=== PATIENT | female | born 1965 | race Caucasian/White ===

== ENCOUNTER → 2017-04-10 | Outpatient (CLI) | payer MEDICAID ==
--- NOTE | 2017-04-10 15:16 | RADIOLOGY REPORT (SQ) ---
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 NUMBER OF VIEWS: Three views. TECHNIQUE: Internal rotation, external rotation, and Y view images acquired of the right shoulder. LIMITATIONS: None. FINDINGS: MINERALIZATION: Normal. BONES: There may have been resection of the distal most portion of the clavicle. There is no acute f racture or dislocation. JOINTS: No dislocation. VISUALIZED LUNGS AND RIBS: No pneumothorax. No rib fracture. SOFT TISSUES: No radiopaque foreign body. OTHER: No other significant finding. IMPRESSION: There appear to be surgical changes. There is no acute abnormality in the right shoulde r. Consider MR for further evaluation if clinically indicated. TECHNICAL DOCUMENTATION: JOB ID: [id number] [employer]- All Rights Reserved
--- NOTE | 2017-04-10 15:21 | RADIOLOGY REPORT (SQ) ---
EXAM DESCRIPTION: SCAPULA RIGHT COMPLETED DATE/TIME: 04/10/2017 2:02 pm REASON FOR STUDY: COMPLAINT OF SHOULDER/SCAPULAR PAIN COMPARISON: Right shoulder films same date AP chest 03/02/2016 TECHNIQUE: Right scapula Y-view and AP view LIMITATIONS: None. FINDINGS: Grossly normal bone density. There is widening of the right acromioclavicular joint, similar compared to AP chest film 03/02/2016. No glenohumeral joint malalignment. No scapula fracture. Right upper ribs unremarkable. IMPRESSION: No acute fracture. There is widening of the right acromioclavicular joint similar compared to chest film 03/02/2016. TECHNICAL DOCUMENTATION: JOB ID: [id number] [employer]- All Rights Reserved
== END ==
LOC: RAD 13:44
PROVIDERS: ATTEND Radiology Radiation Oncology
DX: C50.512 Malignant neoplasm of lower-outer quadrant of left female breast (principal); D05.12 Intraductal carcinoma in situ of left breast; M25.511 Pain in right shoulder; Z85.3 Personal history of malignant neoplasm of breast; Z95.1 Presence of aortocoronary bypass graft

== ENCOUNTER → 2019-07-19 | Outpatient (CLI) | payer MEDICAID ==
[2019-07-19 11:49] LABS: ABSOLUTE EOSINOPHILS # (AUTO) 0.1 10^3/uL (0.0-0.6); ABSOLUTE LYMPHOCYTES (AUTO) 1.4 10^3/uL (0.5-4.7); ABSOLUTE MONOCYTES (AUTO) 0.6 10^3/uL (0.1-1.4); ABSOLUTE NEUT (AUTO) 7.8 10^3/uL (1.7-8.2); BASOPHILS % (AUTO) 0.2 % (0-2); EOSINOPHILS % (AUTO) 0.6 % (0-6); HEMATOCRIT 35.5 % (36.0-47.0); HEMOGLOBIN 12.3 g/dL (12.0-15.5); LYMPHOCYTES % (AUTO) 13.9 % (13-45); MEAN CORPUSCULAR HEMOGLOBIN 30.4 pg (27.0-33.4); MEAN CORPUSCULAR HGB CONC 34.7 g/dL (32.0-36.0); MEAN CORPUSCULAR VOLUME 88 fl (80-97); MONOCYTES % (AUTO) 6.1 % (3-13); PLATELET COUNT 214 10^3/uL (150-450); RED BLOOD COUNT 4.05 10^6/uL (3.72-5.28); RED CELL DISTRIBUTION WIDTH 12.6 % (11.5-14.0); SEGMENTED NEUTROPHILS % (AUTO) 79.2 % (42-78); TOTAL CELLS COUNTED % (AUTO) 100 %; WHITE BLOOD COUNT 9.8 10^3/uL (4.0-10.5)
[2019-07-19 12:22] LABS: ALBUMIN 4.5 g/dL (3.5-5.0); ALKALINE PHOSPHATASE 58 U/L (38-126); ANION GAP 6 (5-19); ASPARTATE AMINO TRANSFERASE 56 U/L (14-36); BILIRUBIN,TOTAL 0.4 mg/dL (0.2-1.3); BLOOD UREA NITROGEN 19 mg/dL (7-20); CALCIUM 9.3 mg/dL (8.4-10.2); CARBON DIOXIDE 30 mmol/L (22-30); CHLORIDE 102 mmol/L (98-107); GLUCOSE 87 mg/dL (75-110); POTASSIUM 5.1 mmol/L (3.6-5.0); TOTAL PROTEIN 7.3 g/dL (6.3-8.2)
== END ==
LOC: LAB 11:28
PROVIDERS: ATTEND Physician Assistant
DX: Z11.2 Encounter for screening for other bacterial diseases (principal); I10 Essential (primary) hypertension
CPT/HCPCS: 36415; 80053; 85025; 87070

== ENCOUNTER → 2020-04-20 | Outpatient (CLI) | payer MEDICARE ==
--- NOTE | 2020-04-20 18:15 | RADIOLOGY REPORT (SQ) ---
EXAM DESCRIPTION: MRI RT LOWER JOINT WITHOUT IMAGES COMPLETED DATE/TIME: 04/20/2020 1:34 pm REASON FOR STUDY: M25.561 PAIN IN RIGHT KNEE M25.551 PAIN IN RIGHT HIP M25.561 PAIN IN RIGHT KNEE COMPARISON: Plain radiographs TECHNIQUE: Rightknee images acquired and stored on PACS. Multiplanar images include fat sensitive s equences as T1, water sensitive sequences as FST2 or STIR, cartilage sensitive sequences as FSPD, and gradient echo sequences. LIMITATIONS: None. FINDINGS: JOINT AND BURSAE: No significant effusion or popliteal cysts. BONE CORTEX AND MARROW: No alteration of signal to suggest marrow replacement. No worrisome bone lesi ons. No occult fracture. ACL: Mild myxoid degeneration of the ACL. No tear. PCL: Intact. MCL: Intact. No periligamentous edema or fluid. LCL: Intact. No periligamentous edema or fluid. MEDIAL MENISCUS: Small mid meniscal flap tear. LATERAL MENISCUS: No tears. No abnormal signal. MEDIAL COMPARTMENT: No focal cartilaginous loss. There is a large subchondral cysts along the medial tibial plateau with adjacent reactive edema. LATERAL COMPARTMENT: Cartilage preserved. No bone bruises or reactive marrow edema. No osteophytes. PATELLA: No focal cartilaginous loss of the patella for trochlear cartilage. Small patellofemoral os teophytes. EXTENSOR MECHANISM: Intact. Quadriceps and patella tendons normal. SOFT TISSUES: Adjacent muscles and subcutaneous tissues normal. Normal flow void in popliteal artery and vein. OTHER: No other significant finding. IMPRESSION: Small flap tear of medial meniscus. Subchondral cyst of the medial tibial plateau with adjacent reactive marrow edema. TECHNICAL DOCUMENTATION: JOB ID: [id number] [employer]- All Rights Reserved Reading location - IP/workstation name: [email or web address]
--- NOTE | 2020-04-21 15:19 | RADIOLOGY REPORT (SQ) ---
EXAM DESCRIPTION: MRI PELVIS WITHOUT IMAGES COMPLETED DATE/TIME: 04/20/2020 1:34 pm REASON FOR STUDY: R10.2 PELVIC AND PERINEAL PAIN M25.551 PAIN IN RIGHT HIP M25.561 PAIN IN RIGHT K NEE COMPARISON: None. TECHNIQUE: Multiplanar multisequence imaging performed without contrast including axial, sagittal an d coronal T2, axial T1, sagittal inversion recovery. LIMITATIONS: None. FINDINGS: BLADDER AND URETHRA: No focal bladder wall thickening or nodularity. Smooth mucosa. The urethra has smooth contour with no focal asymmetry. No focal lesions. PELVIC SOFT TISSUES: Normal. No masses. UTERUS: Surgically absent RIGHT OVARY: Not identified LEFT OVARY: Not identified FREE FLUID: None. PELVIC SKELETAL STRUCTURES: No abnormal marrow signal. EXTRA PELVIS SOFT TISSUES: No masses. OTHER: Degenerative changes in lumbar spine. IMPRESSION: No soft tissue masses. No significant bony changes in the pelvis. Degenerative changes lower lumbar spine. TECHNICAL DOCUMENTATION: JOB ID: [id number] 2010 [employer]- All Rights Reserved Reading location - IP/workstation name: [email or web address]
== END ==
LOC: RAD 12:08
PROVIDERS: ATTEND Orthopaedic Surgery
DX: R10.2 Pelvic and perineal pain (principal); M25.561 Pain in right knee; M25.551 Pain in right hip; M25.861 Other specified joint disorders, right knee; S83.241A Other tear of medial meniscus, current injury, right knee, initial encounter; X58.XXXA Exposure to other specified factors, initial encounter; Y93.9 Activity, unspecified; Y92.9 Unspecified place or not applicable
CPT/HCPCS: 72195

== ENCOUNTER → 2020-06-12 | Outpatient (CLI) | payer MEDICARE ==
--- NOTE | 2020-06-12 12:27 | RADIOLOGY REPORT (SQ) ---
EXAM DESCRIPTION: VENOUS UNILATERAL LOWER IMAGES COMPLETED DATE/TIME: 06/12/2020 12:16 pm REASON FOR STUDY: PAIN RLE M25.561 PAIN IN RIGHT KNEE S83.281D OTH TEAR OF LAT MENSC, CURRENT INJU RY, RIGHT KNEE, COMPARISON: None. TECHNIQUE: Dynamic and static land scale and color images acquired of the right leg venous system. S elected spectral images acquired with additional compression and augmentation maneuvers. The contrala teral common femoral vein and saphenofemoral junction were also imaged. Images stored on PACS. LIMITATIONS: None. FINDINGS: COMMON FEMORAL: Normal phasicity, compression and augmentation. No visualized echogenic ma terial on land scale. No defects on color images. FEMORAL: Normal compression and augmentation. No visualized echogenic material on land scale. No defe cts on color images. POPLITEAL: Normal compression, augmentation. No visualized echogenic material on land scale. No defec ts on color images. CALF VESSELS: Normal compression, augmentation. No visualized echogenic material on land scale. No de fects on color images. GSV and SSV: Normal compression, augmentation. No visualized echogenic material on land scale. No def ects on color images. ANY DEEP VENOUS INSUFFICIENCY: Not evaluated. ANY EVIDENCE OF POPLITEAL CYST: No. OTHER: No other significant finding. CONTRALATERAL COMMON FEMORAL VEIN AND SAPHENOFEMORAL JUNCTION: Normal phasicity, compression and augmentation. No visualized echogenic material on land scale. No de fects on color images. IMPRESSION: NO EVIDENCE DVT OR SVT IN THE RIGHT LEG. TECHNICAL DOCUMENTATION: JOB ID: [id number] 2010 [employer]- All Rights Reserved Reading location - IP/workstation name: [email or web address]
== END ==
LOC: SP 11:00
PROVIDERS: ATTEND Physician Assistant
DX: S83.281D Other tear of lateral meniscus, current injury, right knee, subsequent encounter (principal); X58.XXXD Exposure to other specified factors, subsequent encounter; M25.561 Pain in right knee
CPT/HCPCS: 93971